=== PATIENT | female | born 1975 | race Caucasian/White ===

== ENCOUNTER 2020-10-28 14:26 | Outpatient (CLI) | payer OTHER | END 2020-10-28 14:27 | disposition critical access hospital (66) | LOC: EMS 14:26 | DX: Z04.1 Encounter for examination and observation following transport accident (principal) | CPT/HCPCS: A0425; A0429 ==

== ENCOUNTER 2020-10-28 14:54 | Emergency (ER) | payer OTHER ==
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
[2020-10-28 17:30] VITALS: BP 138/82
== END 2020-10-28 17:30 | disposition home or self-care (01) ==
LOC: ED 14:54
DX: S16.1XXA Strain of muscle, fascia and tendon at neck level, initial encounter (principal); V43.64XA Car passenger injured in collision with van in traffic accident, initial encounter
CPT/HCPCS: 99283; 99284